=== PATIENT | male | born 1990 | race Caucasian/White ===

== ENCOUNTER 2019-02-22 20:07 | Emergency (ER) | payer BC ==
[~2019-02-22] VITALS: Ht 185.4 cm; Wt 86.4 kg
[~2019-02-22 20:07] MED LIST: HYDROCODONE-APA1 TAB PO; MINOCIN100 MG PO; NORCO 10/325 TA1 TA1 PO
[2019-02-22] MEDS ORDERED: BUTALB-APAP-CA1 EACH PO (21:51)
[2019-02-22] MEDS ORDERED: ZOFRAN ODT4 MG/UDTAB PO (21:51)
== END 2019-02-22 22:31 | disposition home or self-care (01) ==
LOC: D.ER 20:07
DX: G43.909 Migraine, unspecified, not intractable, without status migrainosus (principal); R11.0 Nausea